=== PATIENT | female | born 2000 | race Caucasian/White ===

== ENCOUNTER 2022-08-12 09:51 | Day surgery (SDC) | payer MEDICAID ==
--- NOTE | 2022-08-12 08:36 | HP ---
DATE OF SURGERY: 08/12/2022 HISTORY OF PRESENT ILLNESS: The patient is a 21-year-old had some epigastric pain, feels full early when she eats. No prior upper endoscopy. Prior negative gallbladder ultrasound, according to patient or family. PAST MEDICAL HISTORY: Heartburn. No chronic illnesses. PAST SURGICAL HISTORY: None. MEDICATIONS: No medications on a regular basis. ALLERGIES: NKDA. FAMILY HISTORY: Negative for this problem. SOCIAL HISTORY: No smoking or alcohol abuse. REVIEW OF SYSTEMS: Fourteen systems reviewed. No chest pain or palpitations. Other systems negative or noncontributory as above and per preadmission questionnaire. PHYSICAL EXAMINATION: BMI 25. GENERAL: No acute distress. HEENT: Sclerae nonicteric. NECK: No JVD. CHEST: Equal excursion, nonlabored breathing. CVS: Regular rate and rhythm. ABDOMEN: Soft. No peritoneal signs. EXTREMITIES: No significant edema. NEURO: Alert, oriented, moving extremities symmetrically. PSYCH: Appropriate mood and affect. SKIN: Dry. IMPRESSION: Some epigastric pain, needs EGD to evaluate for peptic ulcer disease, gastritis, esophagitis or other etiology. If that is negative, she might need might need consideration of HIDA scan. General risk of bleeding or infection, risk of bowel injury or perforation, risk of missed or nondiagnosis or incomplete exam, possibly requiring barium swallow, other studies or procedures or possible need for HIDA scan. General risk of anesthesia, deep vein thrombosis, pulmonary embolism, pneumonia but not limited to, consent obtained. Will proceed with EGD possible biopsy as an outpatient.
[~2022-08-12 09:51] MED LIST: Lactated Ringers 1,000 ML IV ONE
[2022-08-12] MEDS ORDERED: Lactated Ringers 1,000 ML IV SCH (10:00)
[2022-08-12] MEDS ORDERED: Versed 2 MG/2 ML Injection IV ONE (10:44)
[2022-08-12] MEDS ORDERED: DIPRIVAN 200 MG/20 ML IV ONE (11:51)
[2022-08-12] MEDS ORDERED: Xylocaine-Mpf 2% 5 Ml Vial ONE (11:51)
[2022-08-12] MEDS ORDERED: ROBINUL ONE (12:24)
[2022-08-12 13:40] VITALS: BP 109/69; PULSE 55; O2SAT 96
--- NOTE | 2022-08-12 15:20 | OP ---
SURGERY DATE/TIME: 08/12/2022 1224 PREOPERATIVE DIAGNOSIS: Epigastric pain, early satiety. POSTOPERATIVE DIAGNOSIS: Mild gastric erythema, biopsy pending to evaluate for minimal gastritis. PROCEDURES: 1) EGD with cold biopsy of antrum small bowel to evaluate for celiac sprue. 2) Cold biopsy of the antrum to evaluate for Helicobacter pylori. 3) Cold biopsy distal and mid esophagus to evaluate for eosinophilic esophagitis. SURGEON: Dr. Yemi Rodríguez. ANESTHESIA: MAC. ESTIMATED BLOOD LOSS: Minimal. INDICATIONS: As noted above. Risks and benefits explained in detail and not limited to and consent obtained. DESCRIPTION OF PROCEDURE AND FINDINGS: The patient is taken to the endoscopy room. MAC anesthesia introduced. Video gastroscope is carefully passed down the esophagus through the patent pylorus to the third portion of the duodenum. Third, second and first portion of duodenum grossly unremarkable. Cold biopsy taken evaluate for celiac sprue and to rule out other causes of her symptoms. The scope pulled back in the stomach. She just had some mild pinkness in the stomach whether this is a normal variation versus early minimal gastritis, cold biopsy is taken to evaluate for Helicobacter pylori. Good hemostasis noted. On retroflex, the gastroesophageal junction is snug against the scope. No signs of any hiatal hernia. Otherwise no signs of any other mucosal lesions in the stomach. The scope is pulled back. Gastroesophageal junction 40 cm. Z-line was crisp. To rule out other causes of her symptoms, some random cold biopsies taken to evaluate for mid or distal esophagus. Cold biopsy taken to evaluate for eosinophilic esophagitis. Otherwise the esophagus appeared normal. Scope is withdrawn. Findings discussed with the family out in the waiting area. I will see her back in the office next week to go over the results.
== END 2022-08-12 13:49 | disposition home or self-care (01) ==
LOC: SDC 09:51
PROVIDERS: ATTEND Surgery
DX: R10.13 Epigastric pain (principal); K31.89 Other diseases of stomach and duodenum; R68.81 Early satiety
CPT/HCPCS: 81025; J2250; J2704